=== PATIENT | male | born 1965 | race Caucasian/White ===

== ENCOUNTER 2016-12-05 17:23 | Emergency (ER) | payer OTHER ==
[~2016-12-05] VITALS: Ht 185.4 cm; Wt 172.4 kg
[~2016-12-05 17:23] MED LIST: COLCHICINE0.6 M3 PO; PERCOCET 5-3251 EACH PO; PREDNISONE20 M1 PO
--- NOTE | 2016-12-05 17:30 | ED CARDIAC/CP/PALPITATIONS ---
History of Present Illness General Chief Complaint: Dizziness Stated Complaint: BRADYCARDIC AT URGENT CARE Source: patient Exam Limitations: no limitations Vital Signs & Intake/Output Vital Signs & Intake/Output Vital Signs Date Time Temp Pulse Resp B/P Pulse O2 O2 Flow FiO2 Ox Delivery Rate 12/05 2030 98.0 92 18 120/75 97 Room Air 12/05 1730 98.1 81 18 152/94 98 Room Air ED Intake and Output 12/06 0000 12/05 1200 Intake Total 1000 Output Total Balance 1000 Intake, IV 1000 Patient 380 lb Weight Allergies Coded Allergies: amlodipine (DIFF BREATHING 10/10/16) clonidine (MIGRAINE 10/10/16) Reconcile Medications Colchicine 0.6 MG CAPSULE 0 PO SEE ADMIN CRITERIA gout 1-2 tabs hourly for 7 hours until pain goes away or you develop abdominal symptoms like nausea, vomiting, pain or diarrhea Ondansetron HCl (Zofran) 4 MG TABLET 1 TAB PO Q6-8P PRN NAUSEA Oxycodone HCl/Acetaminophen (Percocet 5-325 MG Tablet) 5 MG-325 MG TABLET 1-2 TAB PO Q6P PRN severe pain Oxycodone HCl/Acetaminophen (Percocet 5-325 MG Tablet) 5 MG-325 MG TABLET 1 TAB PO Q6 PRN PAIN Prednisone 20 MG TABLET 1 TAB PO BID gout Triage Nurses Notes Reviewed? yes Onset: Abrupt Duration: better Timing: recent history Quality/Severity: pressure, sharp, stabbing Location: epigastric Radiation: no radiation HPI: Patient is a 51-year-old male with a past medical history of hypertension, atrial fibrillation currently on XARELTO, diabetes who presents emergency room stating that since Thanksgiving approximately 6 weeks ago he has been complaining of intermittent epigastric pain and nausea vomiting and diarrhea. Patient states that today he began having chills and then suddenly approximately 2 hours after eating breakfast he had acute onset of sharp stabbing severe epigastric pain and multiple episodes of nonbloody nonbilious emesis and loose watery stool production. Patient presented to the urgent care facility and had more episodes of vomiting in which an EKG revealed the patient had a 52 bpm atrial fibrillation reading in which patient was sent in via EMS. Patient was originally given by mouth Zofran however IV Zofran was administered on arrival by EMS in which he states his nausea has gone. Patient states that he hasn't received colonoscopy and his primary care doctor has evaluated his symptoms however he does not meet his deductible to pay for the colonoscopy currently. Patient denies any fevers chest pain arm pain jaw pain diaphoresis palpitations Denies any blood or melena noted from stool production today or since symptoms began (OSITO GAUTAM) Past History Medical History Any Pertinent Medical History? see below for history Neurological: migraine, TIA EENT: epistaxis Cardiovascular: AFIB, hypertension Respiratory: obstructive sleep apnea Gastrointestinal: NONE Hepatic: NONE Renal: NONE Musculoskeletal: disk herniation Psychiatric: depression Endocrine: diabetes, obesity, vitamin D deficiency Blood Disorders: anemia, DVT Cancer(s): NONE Surgical History Surgical History: non-contributory Psychosocial History Who do you live with Spouse What is your primary language Upper Sorbian Family History Hx Contributory? No (OSITO GAUTAM) Review of Systems Review of Systems Constitutional: Reports: no symptoms. EENTM: Reports: no symptoms. Respiratory: Reports: see HPI. Denies: cough, short of breath. Cardiovascular: Reports: see HPI. Denies: chest pain. GI: Reports: see HPI, abdominal pain, nausea. Genitourinary: Reports: no symptoms. Musculoskeletal: Reports: no symptoms. Skin: Reports: no symptoms. Neurological/Psychological: Reports: no symptoms. Hematologic/Endocrine: Reports: no symptoms. Immunologic/Allergic: Reports: no symptoms. All Other Systems: Reviewed and Negative (OSITO GAUTAM) Physical Exam Physical Exam General Appearance: no apparent distress, obese Cardiovascular: tachycardia, irregularly irregular Gastrointestinal: normal bowel sounds, soft, MODERATE EPIGASTRIC POINT TENDERNESS NOTED, mILD RIGHT UPPER QUADRANT POINT TENDERNESS NO REBOUND TENDERNESS NO RIGHT LOWER QUADRANT PAIN Comments: HEENT: Normal EENT exam, extraocular motion intact, no nystagmus. Pupils equally round and reactive to light and accommodation. Nose is atraumatic. External auditory canal and Tympanic membranes clear. Pharynx normal. No swelling or edema. Neck: Supple, no lymphadenopathy, normal range of motion without pain or tenderness Back: Nontender, no CVA tenderness. Cardiovascular: Regular rate and rhythms no murmurs rubs or gallops, normal JVP Respiratory: Chest nontender. No respiratory distress.breath sounds clear to auscultation bilaterally Extremity: No edema, no calf tenderness to palpation, normal and equal pulses. Neuro: Alert oriented x3, motor sensory normal, . Skin: No appreciable rash on exposed skin, skin is warm and dry. Psych: Mood and affect is normal, memory and judgment is normal. Core Measures ACS in differential dx? Yes Severe Sepsis Present: No Septic Shock Present: No (CHEPE CONTRERAS,OSITO) Progress Differential Diagnosis: AMI, aortic dissection, atrial fibrillation, cholecystitis, CHF/pulm edema, costochondritis, hyperkalemia, hypovolemia, hyperthyroid, hyperventilation, intracranial hemorrhage, musculoskeletal pain, myocarditis, pancreatitis, pericarditis, pneumonia, pneumothorax, PSVT, pulmonary embolism, PUD/GERD, PVCs/PACs, respiratory failure, rib fracture, sepsis, unstable angina, V-fib/V-Tach, WPW syndrome Plan of Care: Orders Procedure Date/time Status CBC WITHOUT DIFFERENTIAL 12/05 2224 Complete Add-on Test (ER Only) 12/05 2038 Active BLOOD CULTURE 12/05 2038 Active TYPE & SCREEN (NOT X-MATCH) 12/05 2038 Complete PROTHROMBIN TIME 12/05 182 Complete TROPONIN LEVEL 12/05 175 Complete LIPASE 12/05 1750 Complete LACTIC ACID 12/05 175 Complete D-DIMER 12/05 1750 Complete DIRECT BILIRUBIN 12/05 175 Complete COMPREHENSIVE METABOLIC PANEL 12/05 175 Complete CBC WITHOUT DIFFERENTIAL 12/05 1750 Complete AMYLASE 12/05 1750 Complete Telemetry/Renewable Energy Engineer 12/05 1730 Active EKG 12/05 173 Active Laboratory Tests 12/05/16 2306: CBC w Diff MAN DIFF ORDERED, RBC 5.12, MCV 89.9, MCH 30.1, RDW 15.1 H, MPV 7.4, Gran % 84.1 H, Lymphocytes % 9.5 L, Monocytes % 5.4, Eosinophils % 0.8, Basophils % 0.2, Absolute Granulocytes 15.9 H, Absolute Lymphocytes 1.8, Absolute Monocytes 1.0 H, Absolute Eosinophils 0.2, Absolute Basophils 0, Platelet Estimate ADEQUATE, Normocytic RBCs VERIFIED, Normochromic RBCs VERIFIED , PUBS MCHC 33.5 12/05/162049: Lactic Acid Cancelled 12/05/161828: Anion Gap 9, Estimated GFR > 60, BUN/Creatinine Ratio 20.0, Glucose 241 H, Lactic Acid 1.9, Calcium 9.1, Total Bilirubin 2.0 H, Direct Bilirubin 0.3, AST 20, ALT 37, Alkaline Phosphatase 72, Troponin I < 0.01, Total Protein 6.6, Albumin 3.6, Globulin 3.0, Albumin/Globulin Ratio 1.2, Amylase < 30 L, Lipase 37, PT 12.4, INR 1.18 H, D-Dimer 433 H, CBC w Diff MAN DIFF ORDERED, RBC 5.32, MCV 89.3, MCH 30.3, RDW 14.8 H, MPV 7.7, Gran % 91.8 H, Lymphocytes % 3.2 L, Monocytes % 4.5, Eosinophils % 0.1, Basophils % 0.4, Absolute Granulocytes 20.4 H, Absolute Lymphocytes 0.7 L, Absolute Monocytes 1.0 H, Absolute Eosinophils 0, Absolute Basophils 0.1, Platelet Estimate ADEQUATE, Normochromic RBCs VERIFIED, Poikilocytosis 1+, Stomatocytes 1+, PUBS MCHC 33.9 Microbiology 12/05 2104 BLOOD: Blood Culture - RECD 12/05 2044 BLOOD: Blood Culture - RECD Patient initially after examination was offered pain medications and declined. Patient currently denies any nausea. Patient does show elevated leukocytosis of 22,000 and today elevation of bilirubin at 2.0 however all other blood work was unremarkable ultrasound was reported to have concerns of dilated common bile duct however LFTs were unremarkable. I discussed initial ultrasound report and labs to patient and which he had requested pain medication which morphine was administered. CT scan was unremarkable for acute process. At this time there is no observable concerns of gallbladder infection or inflammation or stone noted. There is increased size of the CBD however again liver function tests are unremarkable. I discussed disposition and plan with Dr. RIOS Who advised patient to receive IV fluids and to have repeat of the CBC performed. Patient currently is in no apparent distress and declined pain medications when offered Patient had repeat CBC showing improvement of his leukocytosis. I strongly advised patient to follow discharge instructions and he will comply. On discharge patient was in no apparent distress and denies any pain or nausea. Patient was able tolerate by mouth. Patient was strongly advised to follow up with gastroenterology and surgery for concerns of biliary colic I also discussed disposition and plan with Dr. Frey who agrees (OSITO GAUTAM) Diagnostic Imaging: Viewed by Me: CT Scan, Ultrasound. Radiology Impression: SEE COMMENTS Initial ED EKG: ATRIAL FIBRILLATION 121 BPM Comments: PATIENT: STEPHY ZHOU PRESENT AGE: 51 PATIENT ACCOUNT NO: [id number] : 63 LOCATION: [facility] [place] ORDERING PHYSICIAN: OSITO CONTRERAS SERVICE DATE: 12/05/16 EXAM TYPE: CAT - CT ABD & PELVIS ANGIOGRAM; CTA CHEST-PULMONARY EMBOLISM EXAMINATION: 1. CTA chest: 2. CTA ABDOMEN AND PELVIS WITH CONTRAST CLINICAL INFORMATION: Elevated d-dimer. Epigastric pain. COMPARISON: Chest x-ray 12/05/2016. TECHNIQUE: A noncontrast localizer was performed, followed by the administration of 100 mL Optiray [address] of the chest was then performed. Coronal and sagittal reformatted and 3-D technique MIP images of the chest were completed at the CT scanner and reviewed on the PACS workstation. No adverse effects were reported. Images were then performed through the abdomen and pelvis. Coronal and sagittal reformatted images performed at CT scanner by technologist. DLP: 1176.31 mGy-cm. FINDINGS: VASCULAR: The main pulmonary artery, secondary and tertiary branches of the pulmonary artery are normally opacified with no evidence of pulmonary embolism. The aorta and great vessels are unremarkable. There is no aneurysm or dissection of aorta. No atherosclerotic vascular calcification. The vasculature in the abdomen and pelvis is normal with no aneurysm or dissection. Normal enhancement of the celiac axis, SMA and renal arteries. 1. CTA CHEST; MEDIASTINUM: No mediastinal mass. No significant lymphadenopathy. There is no pericardial effusion. LUNGS: Linear scar or subsegmental atelectasis at the right lung base. Calcified granuloma measuring 5 mm in the right lower lobe. There are a few additional tiny calcified granulomas in both lungs. There is no acute change. No acute infiltrate. Central bronchial airways open. FLUID: There is no pericardial effusion. There is no pleural effusion. AXILLA: No significant lymphadenopathy. 2. CT SCAN ABDOMEN PELVIS: LIVER, GALLBLADDER, AND BILIARY TREE: The liver is normal in size, shape, and attenuation. No focal hepatic lesion or biliary ductal dilatation is present. The gallbladder is unremarkable with no evidence of radiopaque gallstones, gallbladder wall thickening, or obvious pericholecystic inflammatory changes. PANCREAS: Unremarkable. SPLEEN: Unremarkable. ADRENAL GLANDS: Unremarkable. KIDNEYS AND URETERS: The kidneys are normal in size, shape, and attenuation. No hydronephrosis, hydroureter, or calculi seen. No perinephric stranding. BLADDER: Unremarkable. GASTROINTESTINAL TRACT: The small and large bowel are unremarkable. The appendix is not seen. No inflammation of the mesentery. Mesentery: No free air or free fluid. No inflammation.. ABDOMINAL WALL: No significant hernia is appreciated. LYMPH NODES: Normal. PELVIC VISCERA: Unremarkable. OSSEOUS STRUCTURES: Multilevel degenerative spondylosis of spine with disc height narrowing and endplate spurring and facet joint arthrosis. No acute osseous abnormality. IMPRESSION: 1. CTA OF CHEST: Normal. No evidence of pulmonary embolism. No acute change of the chest. 2. CTA ABDOMEN: No acute change. Abdominal aorta and major branch vessels are normal. No acute change of the abdomen or pelvis. PATIENT: STEPHY ZHOU PRESENT AGE: 51 PATIENT ACCOUNT NO: [id number] : 63 LOCATION: ER ORDERING PHYSICIAN: OSITO CONTRERAS SERVICE DATE: 12/05/16 EXAM TYPE: RAD - XRY-PORTABLE CHEST XRAY EXAMINATION: XR PORTABLE CHEST CLINICAL INFORMATION: Epigastric pain. COMPARISON: Dictated report chest x-ray 06/16/2013. Film is not of abdomen for review TECHNIQUE: Portable view of the chest was obtained. 6:00 PM FINDINGS: No significant abnormality is noted involving the heart, lungs, mediastinum, bony thorax or soft tissues. IMPRESSION: Normal chest. PATIENT: STEPHY ZHOU PRESENT AGE: 51 PATIENT ACCOUNT NO: [id number] : 63 LOCATION: ER ORDERING PHYSICIAN: OSITO CONTRERAS SERVICE DATE: 12/05/16 EXAM TYPE: US - US-LIMITED ABDOMEN US ABDOMEN LIMITED CLINICAL INFORMATION: Right upper quadrant pain and elevated bilirubin. COMPARISON: None available. TECHNIQUE: Real-time imaging of the right upper quadrant abdominal viscera. FINDINGS: PANCREAS: Obscured by bowel gas and not diagnostically assessed. LIVER: Increased liver echogenicity suggesting hepatic steatosis. No focal liver lesions. GALLBLADDER: Normal. The gallbladder is physiologically distended without evidence of stones, sludge, polyps, wall thickening or pericholecystic fluid. COMMON BILE DUCT: Mildly prominent measuring 0.7 cm in diameter. RIGHT KIDNEY: Normal. No hydronephrosis. No renal calculi or focal parenchymal lesions. The kidney measures 12.6 cm in maximum dimension. FREE FLUID: None. IMPRESSION: - Mild prominence of the common bile duct which can be correlated with LFTs if there is concern for choledocholithiasis. - The gallbladder is unremarkable. No sonographic evidence of acute cholecystitis. No cholelithiasis. - Increased liver echogenicity suggesting hepatic steatosis. Portions of the liver are limitedly assessed secondary to obscuring bowel gas. - Pancreas obscured by bowel gas and not diagnostically assessed. (OSITO GAUTAM) Departure Departure Disposition: HOME OR SELF CARE Condition: Stable Clinical Impression Primary Impression: Biliary colic Secondary Impressions: Nausea Referrals: ARVIN ESTRADA,BRICE Chahal (PCP/Family) PRABHAKAR ESTRADA,SIDDHARTHA CINTRON MD,ZANA Brown Additional Instructions: As discussed begin the prescription of Zofran for future nausea and a prescription of Percocet for pain. Tomorrow please call media clerk Dr. Del Cid and surgeon Dr. Cintron to make appointments to be evaluated for further evaluation treatment. Begin a 24-hour clear liquid diet to rest her bowels and please avoid fatty foods as this may worsen your symptoms. If symptoms worsen return to emergency room Departure Forms: Customer Survey General Discharge Information Prescriptions: Current Visit Scripts Ondansetron HCl (Zofran) 1 TAB PO Q6-8P PRN NAUSEA #15 TAB Oxycodone HCl/Acetaminophen (Percocet 5-325 MG Tablet) 1 TAB PO Q6 PRN PAIN #12 TAB (OSITO GAUTAM) PA/RESEARCH LABORATORY SPECIALIST Co-Sign Statement Statement: ED Attending supervision documentation- [] I saw and evaluated the patient. I have also reviewed all the pertinent lab results and diagnostic results. I agree with the findings and the plan of care as documented in the PA's/RESEARCH LABORATORY SPECIALIST's documentation. [X] I have reviewed the ED Record and agree with the PA's/RESEARCH LABORATORY SPECIALIST's documentation. [] Additions or exceptions (if any) to the PAs/RESEARCH LABORATORY SPECIALIST's note and plan are summarized below: [] (RADHA ESTRADA,DAVON Rocha) PA/RESEARCH LABORATORY SPECIALIST Co-Sign Statement Statement: ED Attending supervision documentation- [] I saw and evaluated the patient. I have also reviewed all the pertinent lab results and diagnostic results. I agree with the findings and the plan of care as documented in the PA's/RESEARCH LABORATORY SPECIALIST's documentation. [X] I have reviewed the ED Record and agree with the PA's/RESEARCH LABORATORY SPECIALIST's documentation. [] Additions or exceptions (if any) to the PAs/RESEARCH LABORATORY SPECIALIST's note and plan are summarized below: [] (GABRIEL ESTRADA,HUNTER) Critical Care Note Critical Care Note Critical Care Time: non-applicable (CHEPE CONTRERAS,OSITO)
--- NOTE | 2016-12-05 18:20 | RADIOLOGY REPORT ---
EXAMINATION: XR PORTABLE CHEST CLINICAL INFORMATION: Epigastric pain. COMPARISON: Dictated report chest x-ray 06/16/2013. Film is not of abdomen for review TECHNIQUE: Portable view of the chest was obtained. 6:00 PM FINDINGS: No significant abnormality is noted involving the heart, lungs, mediastinum, bony thorax or soft tissues. IMPRESSION: Normal chest.
[2016-12-05 18:44] LABS: ABSOLUTE BASOPHIL COUNT 0.1 /CUMM (0.0-0.2); ABSOLUTE EOSINOPHIL COUNT 0 /CUMM (0.0-0.7); ABSOLUTE GRANULOCYTE CT 20.4 /CUMM (1.4-6.5); ABSOLUTE LYMPH COUNT 0.7 /CUMM (1.2-3.4); BASOPHIL % 0.4 % (0.0-2.0); EOSINOPHIL % 0.1 % (0-5); GRANULOCYTE % 91.8 % (42.2-75.2); HEMATOCRIT 47.5 % (42-52); MEAN CORPUSCULAR HGB 30.3 PG (27.0-31.0); MEAN CORPUSCULAR HGB CONC 33.9 G/DL (33.0-37.0); MEAN CORPUSCULAR VOLUME 89.3 FL (80.0-94.0); MEAN PLATELET VOLUME 7.7 FL (7.4-10.4); PLATELET COUNT 262 /CUMM (130-400); RBC DISTRIBUTION WIDTH 14.8 % (11.5-14.5); RED BLOOD CELL CT 5.32 /CUMM (4.70-6.10); WHITE BLOOD CELL COUNT 22.2 /CUMM (4.8-10.8)
--- NOTE | 2016-12-05 20:11 | ULTRASOUND REPORT ---
US ABDOMEN LIMITED CLINICAL INFORMATION: Right upper quadrant pain and elevated bilirubin. COMPARISON: None available. TECHNIQUE: Real-time imaging of the right upper quadrant abdominal viscera. FINDINGS: PANCREAS: Obscured by bowel gas and not diagnostically assessed. LIVER: Increased liver echogenicity suggesting hepatic steatosis. No focal liver lesions. GALLBLADDER: Normal. The gallbladder is physiologically distended without evidence of stones, sludge, polyps, wall thickening or pericholecystic fluid. COMMON BILE DUCT: Mildly prominent measuring 0.7 cm in diameter. RIGHT KIDNEY: Normal. No hydronephrosis. No renal calculi or focal parenchymal lesions. The kidney measures 12.6 cm in maximum dimension. FREE FLUID: None. IMPRESSION: - Mild prominence of the common bile duct which can be correlated with LFTs if there is concern for choledocholithiasis. - The gallbladder is unremarkable. No sonographic evidence of acute cholecystitis. No cholelithiasis. - Increased liver echogenicity suggesting hepatic steatosis. Portions of the liver are limitedly assessed secondary to obscuring bowel gas. - Pancreas obscured by bowel gas and not diagnostically assessed.
[2016-12-05 20:30] VITALS: BP 120/75
[2016-12-05 21:03] LABS: PT 12.4 SEC (9.4-12.5)
--- NOTE | 2016-12-05 21:17 | CT SCAN REPORT ---
EXAMINATION: 1. CTA chest: 2. CTA ABDOMEN AND PELVIS WITH CONTRAST CLINICAL INFORMATION: Elevated d-dimer. Epigastric pain. COMPARISON: Chest x-ray 12/05/2016. TECHNIQUE: A noncontrast localizer was performed, followed by the administration of 100 mL Optiray [address] of the chest was then performed. Coronal and sagittal reformatted and 3-D technique MIP images of the chest were completed at the CT scanner and reviewed on the PACS workstation. No adverse effects were reported. Images were then performed through the abdomen and pelvis. Coronal and sagittal reformatted images performed at CT scanner by technologist. DLP: 1176.31 mGy-cm. FINDINGS: VASCULAR: The main pulmonary artery, secondary and tertiary branches of the pulmonary artery are normally opacified with no evidence of pulmonary embolism. The aorta and great vessels are unremarkable. There is no aneurysm or dissection of aorta. No atherosclerotic vascular calcification. The vasculature in the abdomen and pelvis is normal with no aneurysm or dissection. Normal enhancement of the celiac axis, SMA and renal arteries. 1. CTA CHEST; MEDIASTINUM: No mediastinal mass. No significant lymphadenopathy. There is no pericardial effusion. LUNGS: Linear scar or subsegmental atelectasis at the right lung base. Calcified granuloma measuring 5 mm in the right lower lobe. There are a few additional tiny calcified granulomas in both lungs. There is no acute change. No acute infiltrate. Central bronchial airways open. FLUID: There is no pericardial effusion. There is no pleural effusion. AXILLA: No significant lymphadenopathy. 2. CT SCAN ABDOMEN PELVIS: LIVER, GALLBLADDER, AND BILIARY TREE: The liver is normal in size, shape, and attenuation. No focal hepatic lesion or biliary ductal dilatation is present. The gallbladder is unremarkable with no evidence of radiopaque gallstones, gallbladder wall thickening, or obvious pericholecystic inflammatory changes. PANCREAS: Unremarkable. SPLEEN: Unremarkable. ADRENAL GLANDS: Unremarkable. KIDNEYS AND URETERS: The kidneys are normal in size, shape, and attenuation. No hydronephrosis, hydroureter, or calculi seen. No perinephric stranding. BLADDER: Unremarkable. GASTROINTESTINAL TRACT: The small and large bowel are unremarkable. The appendix is not seen. No inflammation of the mesentery. Mesentery: No free air or free fluid. No inflammation.. ABDOMINAL WALL: No significant hernia is appreciated. LYMPH NODES: Normal. PELVIC VISCERA: Unremarkable. OSSEOUS STRUCTURES: Multilevel degenerative spondylosis of spine with disc height narrowing and endplate spurring and facet joint arthrosis. No acute osseous abnormality. IMPRESSION: 1. CTA OF CHEST: Normal. No evidence of pulmonary embolism. No acute change of the chest. 2. CTA ABDOMEN: No acute change. Abdominal aorta and major branch vessels are normal. No acute change of the abdomen or pelvis.
[2016-12-05 23:11] LABS: ABSOLUTE BASOPHIL COUNT 0 /CUMM (0.0-0.2); ABSOLUTE EOSINOPHIL COUNT 0.2 /CUMM (0.0-0.7); ABSOLUTE GRANULOCYTE CT 15.9 /CUMM (1.4-6.5); ABSOLUTE LYMPH COUNT 1.8 /CUMM (1.2-3.4); BASOPHIL % 0.2 % (0.0-2.0); EOSINOPHIL % 0.8 % (0-5); GRANULOCYTE % 84.1 % (42.2-75.2); MEAN CORPUSCULAR HGB 30.1 PG (27.0-31.0); MEAN CORPUSCULAR HGB CONC 33.5 G/DL (33.0-37.0); MEAN CORPUSCULAR VOLUME 89.9 FL (80.0-94.0); MEAN PLATELET VOLUME 7.4 FL (7.4-10.4); PLATELET COUNT 275 /CUMM (130-400); RBC DISTRIBUTION WIDTH 15.1 % (11.5-14.5); RED BLOOD CELL CT 5.12 /CUMM (4.70-6.10); WHITE BLOOD CELL COUNT 18.9 /CUMM (4.8-10.8)
[2016-12-05] MEDS ORDERED: PERCOCET 5-3251 EACH PO (23:56)
[2016-12-05] MEDS ORDERED: ZOFRAN4 M2 PO (23:56)
== END 2016-12-06 00:09 ==
LOC: ERH 17:23
PROVIDERS: Physician Assistant
DX: K80.50 Calculus of bile duct without cholangitis or cholecystitis without obstruction (principal)
CPT/HCPCS: 74174; 87040; 93005; 93010; 96374; 96375

== ENCOUNTER → 2018-03-07 | Day surgery (SDC) | payer OTHER ==
[~2018-03-07] VITALS: Ht 185.4 cm; Wt 167.8 kg
[~2018-03-07] MED LIST changes: +CARDIZEM CD300 M1 PO; +DOXAZOSIN MESYLA4 M1 PO; +ELIQUIS5 M1 PO; +JANUMET 50-1,01 EACH PO; +SPIRONOLACTONE50 M1 PO; +ZOFRAN ODT4 M1 SL; +ZOFRAN4 M2 PO
--- NOTE | 2018-03-07 14:18 | Operative Report ---
Operative/Inv Procedure Report Surgery Date: 03/07/18 Name of Procedure: Right ureteroscopy, retrograde pyelogram cystoscopy Pre-Operative Diagnosis: Right UVJ stone 5 mm Post-Operative Diagnosis: No stones Estimated Blood Loss: diaz Surgeon/Ski Patrol Officer: Angie King MD Anesthesia: laryngeal mask airway Complications: None Condition: Stable Operative Indication: Right UVJ stone Operative/Procedure Note Note: 52-year-old male Waylon Soler with a distal UVJ stone that he was unable to pass with conservative measures and tamsulosin. He wished to have it surgically addressed. He was given the risks benefits and alternatives of ureteroscopy with laser lithotripsy and stent placement. He wished to proceed and all questions were answered. At the time of the surgery the patient had not passed it over the weekend. Patient was identified in the holding area and brought to the operating placed on the operating table in the supine position. Timeout was performed. IV antibiotics were infused. LMA anesthesia was started and patient was placed in the dorsal lithotomy position. He was prepped and draped in the standard sterile fashion. 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 The cystoscope was able to be placed with gentle guidance and manipulation to enter the urethra blindly. The bladder was easily identified and entered and was globally inspected. There were no lesions tumors or trabeculation. The ureteral orifices were easily identified. The right ureteral orifice was cannulated with a solo guidewire. This was followed by the semirigid ureteroscope. There was no distal UVJ no stone noted. The semirigid was taken all the way up to the UPJ under fluoroscopic guidance and no stones were seen. As result the semirigid was removed taking care to examine the ureter on the way out and again no stones were seen. The dual-lumen catheter was then used to place the superstiff wire. This was followed by the ureteral access sheath 25 cm in length. The inner sheath was used first followed by the inner and outer sheath. The inner sheath was with the wire was removed and the flexible ureteroscope was placed up into the renal pelvis without difficulty. The renal calyces and pelvis were examined thoroughly. This was done to every calyx followed by retrograde pyelogram followed by another series of examination of the calyces. These were all saved and recorded fluoroscopically. No stones were seen in the renal pelvis with a calyces. The flexible scope was then used to examine the ureter on the way out and again no stones were appreciated. The stones were appreciated in the bladder either. Given the minimal nature of the surgery I did not place a stent. Bladder was emptied patient tolerated the procedure well. Findings: No stone in the right urinary system. Discharge Disposition: PACU
--- NOTE | 2018-03-09 16:24 | RADIOLOGY REPORT ---
EXAMINATION: INTRAOPERATIVE ABDOMINAL FLUOROSCOPY. CLINICAL INDICATION: Right ureteroscopy. COMPARISON: CT abdomen and pelvis 02/13/2018. TECHNIQUE: Intraoperative fluoroscopic images of the right collecting system were obtained. A total of 16 images were obtained. Total fluoroscopic time 26 seconds. FINDINGS/IMPRESSION: Initial images demonstrate cannulation of the right ureter. Subsequent images demonstrate retrograde opacification of the collecting system that appears slightly distended. No acute finding. Osseous structures are unremarkable.
== END ==
LOC: STS 02:26
DX: Z87.442 Personal history of urinary calculi (principal); I48.91 Unspecified atrial fibrillation; Z79.01 Long term (current) use of anticoagulants; E11.9 Type 2 diabetes mellitus without complications; Z79.84 Long term (current) use of oral hypoglycemic drugs; I10 Essential (primary) hypertension
CPT/HCPCS: 74018; J0131; J0690; J1100; J2250; J2405